=== PATIENT | female | born 1960 | race Caucasian/White ===

== ENCOUNTER → 2017-03-05 | Day surgery (SDC) | payer OTHER ==
[2017-02-28 17:12] LABS: BASOPHILS % 0.4 % (0.0-1.0); EOSINOPHILS # (AUTO) 0.3 (0.0-0.4); EOSINOPHILS % 2.9 % (0.0-6.0); HEMATOCRIT 43.7 % (34.2-44.1); HEMOGLOBIN 14.1 g/dL (12.0-16.0); LYMPHOCYTES # (AUTO) 2.7 (1.0-3.2); LYMPHOCYTES % 26.8 % (18.0-39.1); MEAN CORPUSCULAR HEMOGLOBIN 27.7 pg (28-32); MEAN CORPUSCULAR HGB CONC 32.3 g/dL (31-35); MEAN CORPUSCULAR VOLUME 85.9 fL (81-99); MONOCYTES # (AUTO) 0.6 (0.2-0.8); MONOCYTES % 6.2 % (4.4-11.3); NEUTROPHILS # (AUTO) 6.4 (2.1-6.9); NEUTROPHILS % 63.4 % (38.7-80.0); PLATELET COUNT 269 x10e3/uL (140-360); RED BLOOD COUNT 5.09 x10e6/uL (3.6-5.1); RED CELL DISTRIBUTION WIDTH 13.4 % (11.7-14.4)
[2017-02-28 17:32] LABS: ANION GAP 16.5 mmol/L (8-16); BLOOD UREA NITROGEN 18 mg/dL (7-26); BUN/CREATININE RATIO 24 (6-25); CALCIUM 9.9 mg/dL (8.4-10.2); CARBON DIOXIDE 25 mmol/L (22-29); CHLORIDE 106 mmol/L (98-107); CREATININE, SERUM 0.75 mg/dL (0.57-1.11); EST GLOMERULAR FILTRATION RATE > 60 ML/MIN (60-); GLUCOSE 108 mg/dL (74-118); POTASSIUM 4.5 mmol/L (3.5-5.1); SODIUM 143 mmol/L (136-145)
[~2017-03-05] MED LIST: ASPIRIN81 MG PO; BUPIVACAINE 0.25%/EPI 30ML SDV INJ ONE; BYDUREON2 MG SQ; CRESTOR20 MG PO; DEXAMETHASONE SOD PHOS INJ 4 MG/ML VIAL ONE; FARXIGA PO; FENOFIBRATE145 MG PO; FENTANYL CITRATE/PF 100MCG/2 ML INJ ONE; LIDOCAINE HCL 1% LOCAL INJ 20 ML VIAL ONE; LIDOCAINE HCL 2% LOCAL INJ 5 ML SDV VIAL INJ ONE; METFORMIN HCL500 M1 PO; MIDAZOLAM HCL 2 MG/2 ML VIAL ONE; ONDANSETRON HCL INJ 2 MG/ML VIAL ONE; PROPOFOL IV EMULSION 10 MG/ML 20 ML VIAL ONE; RAMIPRIL5 MG PO; SEVOFLURANE INHAL SOLN 250 ML PEN BTL ONE; TRESIBA SQ; VITAMIN B-121000 MC2 PO; VITAMIN D2000 UNIT PO; WOMEN'S DAILY1 EAC2 PO
--- NOTE | 2017-03-05 14:04 | Operative Report ---
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 PREOPERATIVE DIAGNOSIS: Left breast mass. POSTOPERATIVE DIAGNOSIS: Left breast mass. OPERATION PERFORMED: Left partial mastectomy with preoperative ultrasound-guided needle localization and intraoperative specimen mammography. ANESTHESIA: General. COMPLICATIONS: None. ESTIMATED BLOOD LOSS: Minimal. DESCRIPTION OF PROCEDURE: With the patient lying in bed in the supine position under good general anesthesia, after having undergone an ultrasound-guided needle localization of the mass in the left breast at the 3 o'clock position, the left breast was then prepped with Betadine solution and draped in the usual manner. The area overlying the needle entry point was then infiltrated with 0.25% Marcaine solution. An incision was made and carried down through the subcutaneous tissue. The mass was rather superficial on the x-rays, so we took a plane just below the skin in the subareolar area and the area all around the needle was then slowly and carefully from the breast tissue and totally and completely removed without any problems. The specimen was then appropriately oriented and sent for specimen mammography, which confirmed the fact that the mass and the clip were contained within the center of the specimen. The whole area was then thoroughly irrigated. Perfect hemostasis was ascertained. The breast tissue was then reapproximated with interrupted sutures of 2-0 chromic and the skin was closed with subcuticular 5-0 Vicryl. Benzoin and Steri-Strips were applied. A dressing was placed. The sponge, lap, and needle count was correct. Patient tolerated the procedure well and returned to the recovery room in stable condition. Job#: [id number] VAS
--- NOTE | 2017-03-06 15:36 | Diagnostic Imaging Report ---
#[id number] - [id number] NEEDLE LOCALIZATION: 03/05/2017 PROCEDURE DESCRIPTION: The patient had an ultrasound biopsy of the left breast, at 9:00. Mammograms show a biopsy marker clip at the lesion location. Preoperative localization was requested. Written informed written consent was obtained from the patient, and a formal time out was taken to confirm patient identity and procedure to be perfomed. Using sterile technique, 1% lidocaine local anesthesia, and mammographic guidance, the biopsy clip was preoperatively localized with a hookwire. Final CC and LM mammograms were obtained to document wire location. A sterile bandage was placed over the wire and the patient was transferred from mammography with no immediate complications noted. Correlation is made to exams dated: 02/15/2017 mammogram, 02/15/2017 ultrasound biopsy, 01/23/2017 mammogram, 12/25/2016 mammogram and 01/23/2017 ultrasound - [facility]. IMPRESSION: NEEDLE LOCALIZATION Follow-up with ACR/ACS guidelines. Clifton govea/suzanne:03/05/2017 13:54:22 Government Minister: Lou SAXENA(R)(M), [facility] [id number]
--- NOTE | 2017-03-06 15:36 | Diagnostic Imaging Report ---
#[id number] - [id number] SPECIMEN: 03/05/2017 CLINICAL: The specimen mammogram shows the hook wire and biopsy clip to be present in the central portion of the specimen. Correlation is made to exams dated: 03/05/2017 localization - [facility] and 02/15/2017 mammogram - [facility]. IMPRESSION: SPECIMEN Follow-up with ACR/ACS guidelines. Clifton Daly Jr., D.O. cw/:03/05/2017 13:56:02 [employer] B[employer]: Lou SAXENA(R)(M), [facility]
== END | disposition home or self-care (01) ==
LOC: OR 07:07
PROVIDERS: ATTEND Surgery
DX: D24.2 Benign neoplasm of left breast (principal); E11.9 Type 2 diabetes mellitus without complications; I10 Essential (primary) hypertension; Z01.810 Encounter for preprocedural cardiovascular examination; Z01.812 Encounter for preprocedural laboratory examination; Z79.82 Long term (current) use of aspirin
CPT/HCPCS: 19281; 19301; 36415 ×2; 76098; 80048; 82948; 85025; 88307; 93005; C1769; J1100; J2001 ×2; J2250; J2405

== ENCOUNTER 2020-06-06 11:14 | Emergency (ER) | payer OTHER ==
[~2020-06-06] VITALS: Ht 172.7 cm; Wt 86.2 kg
[~2020-06-06 11:14] MED LIST changes: -BUPIVACAINE 0.25%/EPI 30ML SDV INJ ONE; -DEXAMETHASONE SOD PHOS INJ 4 MG/ML VIAL ONE; -FENTANYL CITRATE/PF 100MCG/2 ML INJ ONE; -LIDOCAINE HCL 1% LOCAL INJ 20 ML VIAL ONE; -LIDOCAINE HCL 2% LOCAL INJ 5 ML SDV VIAL INJ ONE; -MIDAZOLAM HCL 2 MG/2 ML VIAL ONE; -ONDANSETRON HCL INJ 2 MG/ML VIAL ONE; -PROPOFOL IV EMULSION 10 MG/ML 20 ML VIAL ONE; -SEVOFLURANE INHAL SOLN 250 ML PEN BTL ONE
[2020-06-06] MEDS ORDERED: SODIUM CHLORIDE 0.9% 1000ML 1,000 ML IV STA (11:30)
[2020-06-06 11:39] LABS: BASOPHILS % 0.3 % (0.0-1.0); EOSINOPHILS # (AUTO) 0.4 (0.0-0.4); HEMATOCRIT 50.9 % (34.2-44.1); HEMOGLOBIN 16.2 g/dL (12.0-16.0); LYMPHOCYTES % 15.9 % (18.0-39.1); MEAN CORPUSCULAR HEMOGLOBIN 27.6 pg (28-32); MEAN CORPUSCULAR HGB CONC 31.8 g/dL (31-35); MEAN CORPUSCULAR VOLUME 86.7 fL (81-99); MONOCYTES # (AUTO) 0.8 (0.2-0.8); MONOCYTES % 6.5 % (4.4-11.3); NEUTROPHILS # (AUTO) 9.4 (2.1-6.9); NEUTROPHILS % 73.8 % (38.7-80.0); PLATELET COUNT 245 x10e3/uL (140-360); RED BLOOD COUNT 5.87 x10e6/uL (3.6-5.1); RED CELL DISTRIBUTION WIDTH 13.3 % (11.7-14.4)
[2020-06-06 11:44] LABS: COLOR,URINE RED (YELLOW)
[2020-06-06 11:45] LABS: CLARITY,URINE CLOUDY (CLEAR); KETONES,URINE 1+ (NEGATIVE); LEUKOCYTE ESTERASE ,URINE LARGE (NEGATIVE); NITRITE,URINE NEGATIVE (NEGATIVE); PROTEIN,URINE DIPSTICK >=300 (NEGATIVE)
[2020-06-06 11:54] LABS: ALANINE AMINOTRANSFERASE 18 IU/L (0-55); ALBUMIN 4.4 g/dL (3.5-5.0); ALBUMIN/GLOBULIN RATIO 1.1 (0.8-2.0); ALKALINE PHOSPHATASE 75 IU/L (40-150); ANION GAP 15.8 mmol/L (8-16); BLOOD UREA NITROGEN 12 mg/dL (7-26); BUN/CREATININE RATIO 16 (6-25); CALCIUM 9.5 mg/dL (8.4-10.2); CARBON DIOXIDE 27 mmol/L (22-29); CHLORIDE 103 mmol/L (98-107); CREATININE, SERUM 0.75 mg/dL (0.57-1.11); EST GLOMERULAR FILTRATION RATE > 60 ML/MIN (60-); GLUCOSE 147 mg/dL (74-118); POTASSIUM 3.8 mmol/L (3.5-5.1); SODIUM 142 mmol/L (136-145)
[2020-06-06] MEDS: CEFTRIAXONE SOD 1 GM/50 ML BAG IV ONE ×2 (11:56→11:58)
[2020-06-06 11:57] LABS: BACTERIA,URINE RARE /HPF; EPITHELIAL CELLS,URINE FEW /LPF; RBC,URINE >50 /HPF (0-5); WBC,URINE (MAN) >50 /HPF (0-5)
[2020-06-06] MEDS ORDERED: CEFTRIAXONE SOD 1 GM in SODIUM CHLORIDE 0.9% 50ML 50 ML IV ONE (12:00)
[2020-06-06] MEDS ORDERED: CEFTRIAXONE SOD 1 GM VIAL ONE (12:00)
[2020-06-06] MEDS ORDERED: SODIUM CHLORIDE 0.9% 50ML 50 ML ONE (12:00)
== END 2020-06-06 13:00 | disposition home or self-care (01) ==
LOC: ER 11:33
DX: N39.0 Urinary tract infection, site not specified (principal); R31.9 Hematuria, unspecified; E11.65 Type 2 diabetes mellitus with hyperglycemia; I10 Essential (primary) hypertension; E78.5 Hyperlipidemia, unspecified
CPT/HCPCS: 36415; 80053; 81001; 85025; 87086; 99283; J0696 ×2; J7030